=== PATIENT | male | born 1955 | race Two or more races ===

== ENCOUNTER 2024-09-06 11:54 | Emergency (ER) | payer OTHER ==
[~2024-09-06] VITALS: Ht 172.7 cm; Wt 79.4 kg
[2024-09-06] MEDS ORDERED: ADULT LOW DOSE81 M1 (12:06)
[2024-09-06] MEDS ORDERED: LIPITOR40 M1 PO (12:09)
[2024-09-06] MEDS ORDERED: AVAPRO300 MG PO (12:10)
[2024-09-06] MEDS ORDERED: NIFEDIPINE20 MG (12:10)
[2024-09-06] MEDS ORDERED: TOPROL XL25 M1 (12:11)
[2024-09-06] MEDS ORDERED: ECOTRIN325 M1 (12:11)
[2024-09-06] MEDS ORDERED: 0.9 % SODIUM CHLORIDE 1,000 ML IV STA (12:48)
[2024-09-06] MEDS ORDERED: FAMOtidine 10 MG/ML (4ML VIAL) IV STA (12:49)
[2024-09-06] MEDS ORDERED: FAMOTIDINE/PF 20 MG/2 ML VIAL ONE (12:55)
[2024-09-06 13:27] LABS: ALBUMIN 3.1 gm/dL (3.4-5.0); BILIRUBIN TOTAL 0.8 mg/dL (0.3-1.2); BILIRUBIN,CONJUGATED 0.14 mg/dL (0.0-0.2); BILIRUBIN,UNCONJUGATED 0.66 mg/dL (0.0-0.6); CALCIUM 8.6 mg/dL (8.5-10.1); CREATININE SERUM 1.19 mg/dL (0.70-1.30); GFR 60.98; HEMATOCRIT 35.9 % (39.0-48.0); HEMOGLOBIN 12.1 g/dL (13-16.00); MEAN CELL VOLUME 87.4 fL (80.0-100.00); MEAN CORPUSCULAR HEMOGLOBIN 29.3 pg (27.00-32.0); MEAN CORPUSCULAR HGB CONC 33.5 g/dl (32.0-36.0); PLATELET COUNT 205 K/uL (150-450); POTASSIUM 4.85 mEq/L (3.5-5.1); RED BLOOD COUNT 4.11 M/uL (4.00-6.00); RED CELL DISTRIBUTION WIDTH 14.7 % (11.5-14.5); TOTAL PROTEIN 6.6 gm/dL (6.4-8.2)
[2024-09-06 13:31] LABS: INR 1.13; PARTIAL THROMBOPLASTIN TIME 25.1 SECONDS (22.0-34.0); PROTHROMBIN TIME 12.2 SECONDS (9.0-11.5)
[2024-09-06] MEDS ORDERED: BARIUM SULFATE 450 ML ORAL.SUSP PO ONE (14:07)
[2024-09-06 14:11] LABS: PH,URINE 5.5 (5.0-8.0); URINE APPEARANCE Clear; URINE BILIRRUBIN Negative (NEGATIVE); URINE BLOOD Negative; URINE COLOR Yellow; URINE GLUCOSE Negative (NEGATIVE); URINE KETONE Negative (NEGATIVE); URINE LEUKOCYTE Negative; URINE NITRATE Negative; URINE PROTEIN Negative (NEGATIVE); URINE UROBILINOGEN 0.2 E.U./dl
[2024-09-06 14:23] LABS: URINE BACTERIA 3.6 uL (0.0-1933); URINE EPITHELIAL CELLS 0.7 uL (0.0-38.8); URINE RBC 0.7 uL (0.0-20.8); URINE WBC 0.9 uL (0.0-23.2)
[2024-09-06] MEDS ORDERED: PIPERACILLIN/TAZOBACTAM SODIUM 3.375 GM VIAL IV ONE ×2 (16:30→17:17)
[2024-09-06] MEDS ORDERED: PROBIOTIC1 EAC2 PO (19:46)
[2024-09-06] MEDS ORDERED: METRONIDAZOLE500 MG PO (19:46)
[2024-09-06] MEDS ORDERED: PROTONIX20 MG PO (19:46)
[2024-09-06] MEDS ORDERED: QUESTRAN LIGHT210 GM PO (19:46)
[2024-09-06] MEDS ORDERED: CIPRO500 MG PO (19:46)
== END 2024-09-06 21:16 | disposition home or self-care (01) ==
LOC: ER 11:55
PROVIDERS: General Practice
DX: K62.5 Hemorrhage of anus and rectum (principal); K57.30 Diverticulosis of large intestine without perforation or abscess without bleeding; N32.3 Diverticulum of bladder; D35.02 Benign neoplasm of left adrenal gland; R53.81 Other malaise; Z20.822 Contact with and (suspected) exposure to COVID-19
CPT/HCPCS: 36415; 70450; 74176; 93005; 93041; 96365; 96366; 99284; J2543; J3490